=== PATIENT | male | born 1955 | race Caucasian/White ===

== ENCOUNTER 2020-12-09 17:52 | Emergency (ER) | payer OTHER, MEDICARE ==
[~2020-12-09 17:52] MED LIST: Iopamidol-370 76% 500 ML 1 ML ONE
[2020-12-09 18:16] LABS: #Basophils 0.1 thou/uL (0.0-0.2); #Eosinphils 0.3 thou/uL (0.0-0.7); #Lymphocytes 3.4 thou/uL (1.20-3.40); #Monocytes 0.9 thou/uL (0.11-0.59); %Basophils 1.3 % (0.0-1.0); %Eosinophils 3.2 % (0.0-10.0); %Lymphocytes 39.2 % (21.0-51.0); %Monocytes 10.1 % (0.0-10.0); %Neutrophils 46.1 % (42.0-75.0); Hemoglobin 13.4 g/dL (14.0-18.0); Mean Corpuscular HGB CONC 33.3 g/dL (32.0-36.0); Mean Corpuscular Hemoglobin 30.4 pg (27.0-31.0); Mean Corpuscular Volume 91.1 fL (78.0-98.0); Mean Platelet Volume 10.1 fL (7.4-10.4); Platelet Count 168 thou/uL (130-400); RBC Distribution Width 13.6 % (11.5-14.5); Red Blood Cell (RBC) Count 4.42 mill/uL (4.70-6.10); White Blood Cell (WBC) Count 8.7 thou/uL (4.8-10.8)
[2020-12-09 18:41] LABS: ALT (SGPT) 17 U/L (8-55); AST (SGOT) 24 U/L (5-34); Albumin 4.1 g/dL (3.4-4.8); Alkaline Phosphatase 103 U/L (40-110); Anion Gap 14 mmol/L (10-20); BUN (Urea Nitrogen) 17 mg/dL (8.4-25.7); Bilirubin, Total 0.3 mg/dL (0.2-1.2); Calc. Creatinine Clearance 0 mL/min (70-130); Calcium 8.9 mg/dL (7.8-10.44); Carbon Dioxide 18 mmol/L (23-31); Chloride 115 mmol/L (98-107); Globulin 2.8 g/dL (2.4-3.5); Glucose 103 mg/dL (80-115); Potassium 3.5 mmol/L (3.5-5.1); Protein, Total 6.9 g/dL (5.8-8.1); Sodium 143 mmol/L (136-145)
[2020-12-09] MEDS ORDERED: levETIRAcetam in NS 200 ML ONE (19:05)
[2020-12-09] MEDS ORDERED: Acetaminophen 325 MG TAB ONE (19:25)
[2020-12-09] MEDS ORDERED: Dextrose 50% Abboject 50 ML SYRINGE SLOW IVP PRN (20:52)
[2020-12-09] MEDS ORDERED: Ondansetron PF 4 MG/2 ML Vial IVP PRN (20:52)
[2020-12-09] MEDS ORDERED: Dextrose 5% in Water 1,000 ML IV PRN (20:52)
[2020-12-09] MEDS ORDERED: HYDROcodone/Acetaminophen 5/325 mg Tablet PO PRN (20:54)
[2020-12-09] MEDS ORDERED: diphenhydrAMINE 25 MG CAP PO PRN (20:57)
[2020-12-09] MEDS ORDERED: Famotidine 20 MG TAB PO SCH (21:00)
[2020-12-09] MEDS ORDERED: Gabapentin 300 MG CAP PO SCH (21:00)
[2020-12-09] MEDS ORDERED: Amlodipine 10 MG TAB PO SCH (21:00)
[2020-12-09] MEDS ORDERED: Senokot S 8.6-50 MG TAB PO SCH (21:00)
[2020-12-09] MEDS ORDERED: Zonisamide 100 MG CAP PO SCH (21:00)
[2020-12-09] MEDS ORDERED: Acetaminophen 325 MG TAB PO SCH ×2 (22:00→23:59)
[2020-12-09] MEDS ORDERED: Ibuprofen 200 MG TAB PO SCH (22:00)
[2020-12-09] MEDS ORDERED: Ibuprofen 200 MG TAB ONE (22:05)
[2020-12-10] MEDS ORDERED: Levothyroxine Sodium 75 MCG TAB PO SCH (06:00)
[2020-12-10] MEDS ORDERED: Fish Oil 1,000 MG CAP PO SCH (09:00)
[2020-12-10] MEDS ORDERED: (Lutein [Lutein] 20 MG Capsule) PO SCH (09:00)
[2020-12-10] MEDS ORDERED: Polyethylene Glycol 3350 17 GM Packet PO SCH (09:00)
[2020-12-10] MEDS ORDERED: levETIRAcetam 500 MG TAB PO SCH (09:00)
[2020-12-10] MEDS ORDERED: Rosuvastatin 10 MG TAB PO SCH (09:00)
== END 2020-12-09 22:15 | disposition left against medical advice (07) ==
LOC: ERS 17:52
DX: S22.22XA Fracture of body of sternum, initial encounter for closed fracture (principal); S00.31XA Abrasion of nose, initial encounter; G40.409 Other generalized epilepsy and epileptic syndromes, not intractable, without status epilepticus; Z79.899 Other long term (current) drug therapy; V89.2XXA Person injured in unspecified motor-vehicle accident, traffic, initial encounter
CPT/HCPCS: 36415; 70450; 71260; 72125; 74177; 80053; 83605; 84146; 84484; 85025; 93005; 96365; 96366; G0390; J1953; Q9967

== ENCOUNTER 2021-01-08 12:02 | Outpatient (CLI) | payer MEDICARE | END 2021-01-08 12:03 | disposition home or self-care (01) | LOC: BICMRI 12:02 | PROVIDERS: ATTEND Family Medicine | DX: M89.9 Disorder of bone, unspecified (principal); M47.812 Spondylosis without myelopathy or radiculopathy, cervical region | CPT/HCPCS: 72141 ==